=== PATIENT | male | born 1985 | race Caucasian/White ===

== ENCOUNTER 2019-08-08 07:30 | Emergency (ER) | payer OTHER ==
[~2019-08-08] VITALS: Ht 172.7 cm; Wt 79.5 kg
[2019-08-08] MEDS ORDERED: LEXA1TAB2 PO (07:35)
--- NOTE | 2019-08-08 08:45 | REP ---
Left ankle four views : There is no fracture or dislocation. Mineralization and joint spaces are normal. There are no calcifications or foreign bodies. There is a bone island in the distal tibia. Impression: Negative left ankle . Electronically Signed by Perico Blackwood MD 08/08/2019 08:37 A
[2019-08-08 09:21] VITALS: BP 187/82
[2019-08-08] MEDS ORDERED: IBUPROFEN 800 MG TAB PO ONE (09:30)
== END 2019-08-08 09:40 | disposition home or self-care (01) ==
LOC: M ED 07:30
DX: S93.402A Sprain of unspecified ligament of left ankle, initial encounter (principal); Y93.02 Activity, running; M89.8X7 Other specified disorders of bone, ankle and foot; Y92.9 Unspecified place or not applicable; Z79.899 Other long term (current) drug therapy